=== PATIENT | female | born 1950 | race Caucasian/White ===

== ENCOUNTER 2018-03-11 08:00 | Outpatient (CLI) | payer MEDICARE, OTHER | END 2018-03-11 23:59 | disposition home or self-care (01) | LOC: LAB.R 08:00 | PROVIDERS: ATTEND Family Medicine | DX: R19.7 Diarrhea, unspecified (principal) | CPT/HCPCS: 81599; 83630; 87045; 87046; 87177; 87209; 87493; 89055 ==

== ENCOUNTER 2018-03-11 08:35 | Outpatient (CLI) | payer MEDICARE, OTHER ==
[2018-03-11 12:16] LABS: BASOPHILS % (AUTO) 0.4 %; EOSINOPHILS # (AUTO) 0.1 10^3/uL (0.0-0.7); EOSINOPHILS % (AUTO) 2.9 %; HGB - HEMOGLOBIN 12.9 g/dL (12.0-16.0); LYMPHOCYTES # (AUTO) 1.7 10^3/uL (1.5-3.5); LYMPHOCYTES % (AUTO) 35.1 %; MEAN CORPUSCULAR HEMOGLOBIN 30.6 pg (27.0-31.0); MEAN CORPUSCULAR HGB CONC 33.4 g/dL (32.0-36.0); MEAN CORPUSCULAR VOLUME 91.6 fL (81.0-99.0); MEAN PLATELET VOLUME 8.8 fL (7.9-10.8); MONOCYTES # (AUTO) 0.6 10^3/uL (0.0-1.0); MONOCYTES % (AUTO) 11.4 %; NEUTROPHILS # (AUTO) 2.4 10^3/uL (1.5-6.6); NEUTROPHILS % (AUTO) 50.2 %; PLT - PLATELET COUNT 260 10^3/uL (130-450); RED CELL DISTRIBUTION WIDTH 14.1 % (12.0-15.0); WHITE BLOOD COUNT 4.8 x10^3/uL (4.8-10.8)
[2018-03-11 12:46] LABS: ALBUMIN 3.8 g/dL (3.2-5.5); ALBUMIN/GLOBULIN RATIO 1.2 (1.0-2.2); BILIRUBIN,TOTAL 0.6 mg/dL (0.2-1.0); CALCIUM 9.2 mg/dL (8.5-10.3); CREATININE 0.6 mg/dL (0.4-1.0); TOTAL PROTEIN 6.9 g/dL (6.7-8.2)
== END 2018-03-11 08:36 | disposition home or self-care (01) ==
LOC: LAB.WCP 08:35
PROVIDERS: ATTEND Family Medicine
DX: R19.7 Diarrhea, unspecified (principal); E03.9 Hypothyroidism, unspecified
CPT/HCPCS: 36415; 80053; 81599; 83630; 84443; 85025; 87045; 87046; 87177; 87209; 87329; 87493; 89055

== ENCOUNTER 2018-08-30 17:26 | Outpatient (CLI) | payer MEDICARE, OTHER | END 2018-08-30 23:59 | disposition home or self-care (01) | LOC: LAB.R 17:26 | PROVIDERS: ATTEND Nurse Practitioner | DX: J02.9 Acute pharyngitis, unspecified (principal) | CPT/HCPCS: 87070 ==

== ENCOUNTER 2021-04-15 17:59 | Outpatient (CLI) | payer MEDICARE, OTHER ==
--- NOTE | 2021-04-16 11:06 | XRAY Report ---
PROCEDURE: Foot 3 View RT INDICATIONS: R FOOT PX TECHNIQUE: 3 views of the foot were acquired. COMPARISON: None FINDINGS: Bones: No fractures or dislocations. No suspicious bony lesions. Soft tissues: No tibiotalar joint effusion. Achilles tendon appears normal. IMPRESSION: No visualized acute fracture or dislocation. However, occult injury cannot be excluded. Recommend luisa rt interval imaging follow-up in 7-10 days as clinically indicated for additional evaluation. Reviewed by: Emliy Mcdonald MD on 04/16/2021 11:05 AM PDT Approved by: Emily Mcdonald MD on 04/16/2021 11:05 AM PDT Station ID: [id number]
== END 2021-04-15 23:59 | disposition home or self-care (01) ==
LOC: DI.N 17:59
PROVIDERS: ATTEND Physician Assistant Medical
DX: M79.671 Pain in right foot (principal)

== ENCOUNTER 2021-07-18 16:37 | Outpatient (CLI) | payer MEDICARE, OTHER | END 2021-07-18 16:38 | disposition home or self-care (01) | LOC: COV 16:37 | DX: Z20.822 Contact with and (suspected) exposure to COVID-19 (principal) ==

== ENCOUNTER 2022-07-13 11:41 | Outpatient (CLI) | payer MEDICARE, OTHER | END 2022-07-13 11:42 | disposition critical access hospital (66) | LOC: EMS 11:41 | DX: R53.1 Weakness (principal); R47.89 Other speech disturbances | CPT/HCPCS: A0425; A0429 ==

== ENCOUNTER 2022-08-11 14:51 | Outpatient (CLI) | payer MEDICARE, OTHER ==
[2022-08-11 16:08] VITALS: BP 130/63
== END 2022-08-11 14:52 | disposition home or self-care (01) ==
LOC: MAC.MOP 14:51
PROVIDERS: ATTEND Nurse Practitioner
DX: G45.9 Transient cerebral ischemic attack, unspecified (principal)
CPT/HCPCS: 93246

== ENCOUNTER 2022-09-05 10:30 | Outpatient (CLI) | payer MEDICARE, OTHER | END 2022-09-05 10:31 | disposition home or self-care (01) | LOC: MAC.MOP 10:30 | PROVIDERS: ATTEND Nurse Practitioner | DX: G45.9 Transient cerebral ischemic attack, unspecified (principal); I47.1 Supraventricular tachycardia; I49.1 Atrial premature depolarization; I49.3 Ventricular premature depolarization | CPT/HCPCS: 93248 ==

== ENCOUNTER 2023-01-14 11:24 | Outpatient (CLI) | payer MEDICARE, OTHER ==
[2023-01-14 17:57] LABS: BASOPHILS # (AUTO) 0.1 10^3/uL (0.0-0.1); BASOPHILS % (AUTO) 1.2 %; EOSINOPHILS # (AUTO) 0.4 10^3/uL (0.0-0.7); EOSINOPHILS % (AUTO) 7.5 %; HCT - HEMATOCRIT 44.1 % (37.0-47.0); HGB - HEMOGLOBIN 13.9 g/dL (12.0-16.0); LYMPHOCYTES # (AUTO) 2.1 10^3/uL (1.5-3.5); LYMPHOCYTES % (AUTO) 34.9 %; MEAN CORPUSCULAR HGB CONC 31.5 g/dL (32.0-36.0); MEAN PLATELET VOLUME 10.9 fL (7.9-10.8); MONOCYTES # (AUTO) 0.5 10^3/uL (0.0-1.0); MONOCYTES % (AUTO) 7.8 %; NEUTROPHILS # (AUTO) 2.9 10^3/uL (1.5-6.6); NEUTROPHILS % (AUTO) 48.4 %; PLT - PLATELET COUNT 311 10^3/uL (130-450); RED BLOOD COUNT 4.64 10^6/uL (4.20-5.40); WHITE BLOOD COUNT 5.9 x10^3/uL (4.8-10.8)
[2023-01-14 18:04] LABS: ALBUMIN 4.6 g/dL (3.2-5.5); ALBUMIN/GLOBULIN RATIO 1.7 (1.0-2.2); ALKALINE PHOSPHATASE 52 IU/L (42-121); ALT ALANINE AMINOTRANSFERASE 22 IU/L (10-60); AST ASPARTATE AMINOTRANSFERASE 26 IU/L (10-42); BILIRUBIN,TOTAL 0.9 mg/dL (0.2-1.0); BUN - BLOOD UREA NITROGEN 15 mg/dL (6-20); CALCIUM 9.5 mg/dL (8.5-10.3); CARBON DIOXIDE - CO2 28 mmol/L (21-32); CHLORIDE 103 mmol/L (101-111); CHOL/HDL RATIO 1.6 (<4.4); CHOLESTEROL 139 mg/dL; CREATININE 0.7 mg/dL (0.4-1.0); GFR - MDRD 82 (>89); GLUCOSE 92 mg/dL (70-100); HDL CHOLESTEROL 87 mg/dL; POTASSIUM 3.9 mmol/L (3.5-5.0); SODIUM 138 mmol/L (135-145); TOTAL PROTEIN 7.3 g/dL (6.7-8.2); TRIGLYCERIDES 39 mg/dL
[2023-01-14 18:11] LABS: THYROID STIMULATING HORMONE 2.12 uIU/mL (0.34-5.60)
[2023-01-14 18:13] LABS: FREE T4 (FREE THYROXINE) 0.77 ng/dL (0.58-1.64)
== END 2023-01-14 11:25 | disposition home or self-care (01) ==
LOC: LAB.N 11:24
PROVIDERS: ATTEND Nurse Practitioner
DX: R10.2 Pelvic and perineal pain (principal); R53.83 Other fatigue; E89.0 Postprocedural hypothyroidism
CPT/HCPCS: 36415; 80053; 80061; 83721; 84439; 84443; 85025

== ENCOUNTER 2023-02-17 09:46 | Outpatient (CLI) | payer MEDICARE, OTHER ==
[2023-02-17] MEDS ORDERED: DIATRIZOATE MEGLU/DIATRIZO SOD 30 ML BOTTLE PO ONE (13:34)
--- NOTE | 2023-02-17 18:40 | CT Report ---
PROCEDURE: ABDOMEN/PELVIS WO INDICATIONS: INGUINAL LYMPHADENOPATHY INGUINAL HERINA TECHNIQUE: Noncontrast 5 mm thick sections acquired from the diaphragms to the symphysis. 5 mm coronal and sagi ttal reformats were then performed. For radiation dose reduction, the following was used: automated exposure control, adjustment of mA and/or kV according to patient size. COMPARISON: None. FINDINGS: Image quality: Excellent. Lung bases and heart: Unremarkable. Liver: No solid mass. Fluid attenuating cyst in segment 2 of the liver, benign. Gallbladder and biliary tree: No radiopaque stones or wall thickening. No biliary dilation. Spleen: No splenomegaly. Pancreas: No pancreatic ductal dilation. Adrenals: No adrenal nodule. Kidneys and ureters: No hydronephrosis. No renal cystic lesion which requires follow up. No solid mas s. Bowel and peritoneum: No bowel distension. No pathologic free fluid. Lymph nodes: No central or retroperitoneal adenopathy. Vessels: No infrarenal aortic aneurysm. PELVIS Reproductive organs: Unremarkable. Bladder: No abnormal wall thickening, accounting for underdistension. Pelvic lymph nodes: No pelvic adenopathy by size criteria. Bones: No aggressive osseous abnormality. Other: Tiny umbilical hernia containing fat. No inguinal adenopathy. IMPRESSION: No inguinal adenopathy or adenopathy of the abdomen or pelvis. Reviewed by: Eric De La Rosa on 02/17/2023 5:39 PM RADHA Approved by: Eric De La Rosa on 02/17/2023 5:39 PM PASHAMIKA Station ID: [id number]
== END 2023-02-17 09:47 | disposition home or self-care (01) ==
LOC: DI 09:46
PROVIDERS: ATTEND Nurse Practitioner
DX: R59.0 Localized enlarged lymph nodes (principal)
CPT/HCPCS: 74176; Q9963

== ENCOUNTER 2023-05-14 14:30 | Outpatient (CLI) | payer MEDICARE, OTHER ==
--- NOTE | 2023-05-14 15:20 | Sleep Patient Instructions ---
Sleep Center Visit Summary - Patient Visit Information Reason for Visit: Initial consult for evaluation of sleep disordered breathing and other sleep issues. - Patient Instructions Instructions Attached: Sleep Study, Sleep Clinic Visit Additional Instructions: You will be completing a sleep study, either an in-lab polysomnography (PSG) or home sleep study (HST). You will follow-up in the sleep care office after the sleep study is completed to hear the results and talk about therapy, if needed. You will be called by our office staff to schedule this appointment, but you may contact us with any questions. - Clinic Information Contact: [facility] [address] [place] [address] [email or web address] T: [phone]
--- NOTE | 2023-05-14 15:23 | SLEEP CARE CONSULTATION ---
Information from patient questionnaire entered by Rebecca Blanchard. I have reviewed and concur with the information entered by Rebecca Blanchard. This document represents the service I personally performed and the decisions made by me, Jennifer Vanegas ARNP. History of Present Illness Service Date and Time: 05/14/2023 1430 Reason for Visit: New patient Chief Complaint: reports: Unrefreshed sleep, Excessive daytime sleepiness, Fatigue Date of Onset: 1.5YRS Usual bedtime: 10PM-12AM Time it takes to fall asleep: VARIES, depends on how tire she is Snores at night: No (unsure/lives alone) Observed to quit breathing while asleep: No Number of times waking at night: 1-3 Reasons for waking at night: reports: Snoring (1-2 times in last few years, woke up snorting), Bathroom, Other (UNKNOWN). denies: Choking, Gasping for air Toss, Turn, or Twitch while sleeping: Yes Recalls having dreams: Yes (sometimes) Usually gets out of bed at: 6-8AM Feels refreshed in the morning: No Morning headache: No Sleepy or fatigued during the day: Yes Ever fallen asleep while driving: No Takes day naps: Yes (almost every day for 30 minutes or more) Dreams during day naps: No Prior sleep studies: No Additional HPI information: I had the pleasure of seeing GEORGIANA CHERY today regarding the possibility of her having a sleep disorder. Her current complaints are unrefreshed sleep, excessive daytime sleepiness and fatigue. She has had a mini stroke and then they found some tachycardia but no reason found for it. She states no matter how much sleep she gets, she wakes up feeling tired. She is concerned about night time breathing issue that could be contributing to her fatigue. - Parasomnia Symptoms Ever been unable to move upon waking from sleep: Yes (once that she can remember, was in severe pain in abdomen) Walks in sleep: No Talks in sleep: Yes Ever acted out dreams in sleep: No Ever felt weak in the knees when startled or emotional: Yes Bothered by creepy, crawly, restless sensations in legs: Yes (sometimes) Problems with memory or concentration: Yes (both, just sometimes) Subjective Initial [place] Sleepiness Scale score: 12 (05/11/23) Past Medical History Past Medical History: reports: Stroke (06/2022), Arthritis, Arrythmia (mild episodic tachycardia), GERD, Other (SADS; dry eyes) Social History The patient's occupation is a RE. Patient is and lives in [place]. Have you smoked in the past 12 months: No Alcohol use: No Caffeine use: Yes Caffeine amount and frequency: 1 3/4 c coffee daily Family History Family history of sleep disordered breathing: Yes Family Hx Sleep Apnea: Sibling: Snoring, Other: Sleep apnea - Treated (SON) Allergies and Home Medications Known drug allergies: Yes (SEE LIST) Drug allergies reviewed: Yes Home medication list reviewed: Yes Allergy and home medication list: Allergies Sulfa (Sulfonamide Antibiotics) Allergy (Verified 05/13/23 09:21) Rash Latex, Natural Rubber Adverse Reaction (Verified 05/13/23 09:21) Rash Review of Systems Weight loss over past 5 years: 7-8 Cardiovascular: reports: palpitations, irregular heart rate or pulse, leg or foot swelling Gastrointestinal: reports: difficulty swallowing, other (LUMP IN LOWER RIGHT AB) Urinary: reports: frequency, other (PROLAPSED BLADDER) Neurological: reports: other (LIGHT HEADED DIZZINESS). denies: headaches, head trauma Psychiatric: reports: anxiety, depression Ear/Nose/Throat: reports: sinus problems, hoarseness, wisdom teeth removed. denies: tonsillectomy Endocrine: reports: thyroid disease (only one lobe left), sluggishness, other (PARTIAL THYROIDECTOMY 2014 RIGHT LOBE AND ISTHMUS REMOVED ) Immunologic: reports: sneezing, itching, allergies to food or environment Physical Exam Vital signs obtained and entered by: REBECCA De La O MA Blood Pressure: 98/58 (LEFT ARM) Cuff size: regular Heart Rate: 68 O2 Saturation: 98 Height: 5 ft 4.5 in Weight: 119 lb 3.2 oz Body Mass Index: 20.1 BMI Classification: Normal Neck circumference: 13.5 Mouth and throat: narrow oropharynx Soft palate: long Hard palate: normal Uvula: normal Uvula visualization: 25% Mallampati Class III Tongue: enlarged in size with teeth faye on lateral edges Tonsils: small Neck: normal w/o lymphadenopathy or thyromegaly Heart: regular rate and rhythm Lungs: clear bilaterally Impression and Plan 1. Suspected Obstructive Sleep Apnea-Hypopnea Syndrome, as suggested by a history of possible snoring, unrefreshed sleep, cognitive impairment, and excessive daytime sleepiness. Narrow oropharynx and obesity are common predisposing factors for obstructive sleep apnea-hypopnea syndrome. I recommend proceeding to polysomnography to confirm the diagnosis and to assess severity. If the patient has significant sleep disordered breathing, a manual CPAP titration study will also be performed to find the optimal treatment pressure. I informed the patient of what the sleep studies involve and after some discussion, obtained agreement to proceed. The pathophysiology of obstructive sleep apnea-hypopnea syndrome was discussed with the patient and health risks of cardiovascular and cerebrovascular disease if not treated. Risks of drowsy driving discussed in detail and patient advised to avoid long distance driving and to puller through at the first sign of drowsiness. Patient agreed to plan. * Schedule polysomnography. * Avoid long distance driving or driving when feeling sleepy. * Avoid alcohol, sedative and muscle relaxant around bedtime. * Review instructions provided by trained office staff on how to prepare for the sleep study. * Return for follow-up after sleep study completed. Visit Type: In Office Time Spent with Patient (minutes): 37 Provider Statement: I spent 100% of the Face to Face Visit with the patient with greater than 50% spent counseling the patient and coordination of care.
[2023-05-14 15:31] VITALS: BP 98/58; O2SAT 98
== END 2023-05-14 14:31 | disposition home or self-care (01) ==
LOC: SC 14:30
PROVIDERS: ATTEND Nurse Practitioner Family
DX: R06.83 Snoring (principal); G47.10 Hypersomnia, unspecified; R53.83 Other fatigue; G47.8 Other sleep disorders; R41.89 Other symptoms and signs involving cognitive functions and awareness
CPT/HCPCS: 99203; G0463; 99212

== ENCOUNTER 2023-07-15 13:39 | Outpatient (CLI) | payer MEDICARE, OTHER ==
--- NOTE | 2023-07-15 11:59 | SLEEP CARE CONSULTATION ---
Information from patient questionnaire entered by Codi Blanchard. I have reviewed and concur with the information entered by Codi Blanchard. This document represents the service I personally performed and the decisions made by , Jennifer Vanegas ARNP. History of Present Illness Service Date and Time: 07/15/2023 1140 Initial [place] Sleepiness Scale score: 12 (05/11/23) Current [place] Sleepiness Scale score: 9 (07/15/23) Additional HPI information: GEORGIANA CHERY returns via telehealth visit for follow up and results of the recently performed polysomnography. The patient was informed of the following findings: No significant sleep di sordered breathing with an average AHI of 0.8 and jovon oxygen saturation of 92%. I explained the pathophysiology behind obstructive sleep apnea. Patient does not have sleep apnea and was advised how weight gain could increase the risk of developing sleep apnea in the future. Patient has light snoring. Snoring can be reduced by weight loss. Weight loss is best achieved with diet consult. Patient instructed to contact PCP for referral. Snoring can also be treated with an oral appliance from a dentist. Advised to check insurance coverage. In addition, an ENT evaluation can be do to see if oth er treatment is indicated. Patient does not drink alcohol. Patient was cautioned about risks of drowsy driving until sleepiness symptoms resolve. Patient denies drowsy driving. Sleep Study - Results Type of Sleep Study: Polysomnography (COMPLETED 06/17/23) Prior sleep studies: No Polysomnography/Home Sleep Study results: IMPRESSION: The quality of the study is good. The patient had reduced sleep efficiency due to sleep onset insomnia and pan operator awakening. The sleep architecture was relatively normal considering the first-night effect. Respiratory monitoring showed no significant sleep disordered breathing (AHI = 0.8) or hypoxia (jovon oxygen saturation of 92%). The patient slept adequately in supine position (supine AHI = 2.2; non-supine = 0.00). Snore was light in intensity. There was no significant periodic leg movement of sleep. Cardiac rhythm was normal sinus rhythm without significant arrhythmia. No abnormal behavior (parasomnia) observed during the night. Allergies and Home Medications Known drug allergies: Yes (as listed) Drug allergies reviewed: Yes Home medication list reviewed: Yes (no changes) Allergy and home medication list: Allergies Sulfa (Sulfonamide Antibiotics) Allergy (Verified 07/14/23 12:43) Rash Latex, Natural Rubber Adverse Reaction (Verified 07/14/23 12:43) Rash Review of Systems Review of systems same as previous: Yes (NO CHANGE) Physical Exam Vital signs obtained and entered by: CODI De La O MA Height: 5 ft 4.5 in (PER PT) Weight: 117 lb (PER PT) Body Mass Index: 19.8 BMI Classification: Normal Impression and Plan 1. Snoring but no significant sleep disordered breathing. Patient advised that often weight loss will reduce snoring as well as apnea risk. An oral appliance can also be used for snoring. This would require a dental consultation. Patient cautioned not to use other online appliances as can cause bite issues. Patient is advised to check if insurance will cover. An ENT consult can also be helpful to determine if any other treatment is an option. * Followup with PCP as needed for fatigue * Maintain a healthy weight * Return as needed for follow up. Counseling Topics: Weight control Visit Type: Telehealth Phone Video Type: Doximity Patient Location: Home Location of Provider: Office Patient agrees and consents to this telehealth visit type: Yes Patient agrees to have their insurance billed: Yes Time Spent with Patient (minutes): 15 Provider Statement: I spent 100% of the Telehealth Phone Call with the patient with greater than 50% spent counseling the patient and coordination of care.
== END 2023-07-15 13:40 | disposition home or self-care (01) ==
LOC: SC 13:39
PROVIDERS: ATTEND Nurse Practitioner Family
DX: R06.83 Snoring (principal)

== ENCOUNTER 2023-07-31 11:13 | Outpatient (CLI) | payer MEDICARE, OTHER ==
[2023-07-31 18:40] LABS: CHOL/HDL RATIO 1.9 (<4.4); CHOLESTEROL 147 mg/dL; HDL CHOLESTEROL 78 mg/dL; LDL CHOLESTEROL,CALCULATED 60 mg/dL; LDL/HDL RATIO 0.8 (<4.4); TRIGLYCERIDES 47 mg/dL (48-352); VLDL CHOLESTEROL 9 mg/dL
[2023-07-31 18:52] LABS: RHEUMATOID FACTOR NEGATIVE (Negative)
[2023-07-31 18:53] LABS: THYROID STIMULATING HORMONE 1.86 uIU/mL (0.34-5.60)
[2023-08-03 14:08] LABS: ANTI-DNA (DS) AB QN <1 IU/mL (0-9)
[2023-08-04 18:08] LABS: CYCLIC CITRULLINATED PEP IGG/A 89 units (0-19)
[2023-08-05 16:08] LABS: ANTINUCLEAR ANTIBODIES IFA Negative (.)
== END 2023-07-31 11:14 | disposition home or self-care (01) ==
LOC: LAB.N 11:13
PROVIDERS: ATTEND Nurse Practitioner
DX: E78.5 Hyperlipidemia, unspecified (principal); R53.83 Other fatigue; R68.2 Dry mouth, unspecified; M25.50 Pain in unspecified joint
CPT/HCPCS: 36415; 80061; 83721; 84439; 84443; 86038; 86200; 86225; 86430